=== PATIENT | female | born 1965 | race Caucasian/White ===

== ENCOUNTER 2017-06-19 07:42 | Day surgery (SDC) | payer MEDICAID ==
[2017-06-19] MEDS ORDERED: SIMETHICONE 40 MG/0.6 ML ML ONE (08:02)
[2017-06-19] MEDS ORDERED: MEPERIDINE HCL/PF 100 MG/ML AMP ONE (08:02)
[2017-06-19] MEDS: MIDAZOLAM HCL 5 MG/5 ML VIAL ONE ×4 (09:30→09:39)
[2017-06-19 15:09] VITALS: BP_SYST 102
== END 2017-06-19 11:10 | disposition home or self-care (01) ==
LOC: SDS 07:42 → SMU 07:51 → SDS 11:10
PROVIDERS: ATTEND Internal Medicine Gastroenterology
DX: Z12.11 Encounter for screening for malignant neoplasm of colon (principal); K64.8 Other hemorrhoids; Z80.0 Family history of malignant neoplasm of digestive organs; K21.9 Gastro-esophageal reflux disease without esophagitis; Z79.899 Other long term (current) drug therapy
CPT/HCPCS: 36415; 43239; 45378; 87081; 88305; 88312; 88313; J2175; J2250